=== PATIENT | female | born 1990 | race Caucasian/White ===

== ENCOUNTER 2019-09-08 22:35 | Emergency (ER) | payer SELFPAY ==
[2019-09-08] MEDS ORDERED: Clindamycin HCl 150 MG Cap PO ONE (22:53)
[2019-09-08] MEDS ORDERED: Lidocaine 2% Viscous Solution 15 ML Cup PO ONE (22:56)
[2019-09-08] MEDS ORDERED: Benzocaine 20% Topical Spray UD MUCMEM ONE (22:56)
--- NOTE | 2019-09-08 22:56 | EDM.PDOC ---
ED HPI GENERAL MEDICAL PROBLEM - General Chief Complaint: ENT Problem Stated Complaint: tooth pain Time Seen by Provider: 09/08/19 22:43 Source of Information: Reports: Patient History Limitations: Reports: No Limitations - History of Present Illness INITIAL COMMENTS - FREE TEXT/NARRATIVE: HISTORY OF PRESENT ILLNESS: Patient is a 29 year old female who presents with 1.5 week history of dental pain and facial swelling on and off. She texted the dentist she plans to see today and he told her to go to ER to get antibiotics before he sees her. Denies any fever or chills. No history of DM or immunocompromise. No difficulty swallowing or breathing. No cp or dyspnea. Reports mild left facial swelling and pain to left upper molar. Able to eat solids and liquids. REVIEW OF SYSTEMS: Other than the symptoms associated with the present events, the following is reported with regard to recent health: General: (-) fever. HENT: (-) congestion. Respiratory: (-) cough. Cardiovascular: (-) chest pain. GI: (-) abdominal pain. : (-) urinary complaints. Musculoskeletal: (-) other aches or pains. Endocrine: (-) generalized weakness. Neurological: (-) localized weakness. Skin: (-) rash PAST MEDICAL HISTORY: reviewed as per nursing notes SOCIAL HISTORY: reviewed as per nursing notes, MEDICATIONS: Per nurse's note ALLERGIES: Per nurse's note, reviewed by me PHYSICAL EXAMINATION: GENERALIZED APPEARANCE: well developed, well nourished in mild distress VITAL SIGNS: Per nurse's note, reviewed by me SKIN: Warm, dry; (-) cyanosis; (-) rash. HEAD: (-) scalp swelling, (-) tenderness. EYES: (-) conjunctival pallor, (-) scleral icterus. EOMI ENMT: (-) stridor; mucous membranes moist. left upper molar TTP with mild gingival erythema without gross abscess and slight facial swelling without any gross facial erythema. pain not out of proportion to examination. no crepitus. uvula midline. no phonation changes. no trismus. NECK: (-) tenderness, (-) stiffness, CHEST AND RESPIRATORY: (-) rales, (-) rhonchi, (-) wheezes; breath sounds equal bilaterally. HEART AND CARDIOVASCULAR: (-) irregularity; (-) murmur, (-) gallop. EXTREMITIES: (-) deformity, (-) edema. NEURO AND PSYCH: Alert. Cranial nerves grossly intact; strength symmetric. gait steady EMERGENCY DEPARTMENT COURSE AND TREATMENT: Patient's condition remained stable during Emergency Department evaluation. Patient presents with acute dentalgia. There is no obvious focal dental abscess on exam. There is no trismus and the patient is tolerating PO fluids.. A referral was given to a dental clinic/ dentist and the patient understands need to follow up in 1-2 days. Instructions were given to return for worsening pain, increased facial swelling, SOB, or not tolerating fluids. They were discharged with antibiotics and analgesia. PLAN AND FOLLOW-UP: Patient received written and verbal instructions regarding this condition. Return to ED immediately with any new or worsening symptoms. Follow up to be arranged by patient with pcp and dentist in 1-2 days for further evaluation. Given discharge precautions. Patient expressed verbal understanding. dental Pain Score (Numeric/FACES): 8 - Related Data Allergies Allergy/AdvReac Type Severity Reaction Status Date / Time Penicillins Allergy Hives Verified 09/08/19 22:54 Sulfa (Sulfonamide Allergy Hives Verified 09/08/19 22:54 Antibiotics) tramadol Allergy Hives Verified 09/08/19 22:54 Home Meds: Home Meds clindamycin HCL [Clindamycin HCl] 300 mg PO TID 7 Days #21 capsule 09/08/19 [Rx] Past Medical History - Past Health History Medical/Surgical History: Denies Medical/Surgical History ED ROS ENT - Review of Systems Review Of Systems: See Below (see dictation) ED EXAM, ENT - Physical Exam Exam: See Below (see dictation) Course - Vital Signs Last Recorded V/S: Last Vital Signs Temp 97.3 F 09/08/19 22:47 Pulse 109 H 09/08/19 22:47 Resp 17 09/08/19 22:47 BP 141/90 H 09/08/19 22:47 Pulse Ox 99 09/08/19 22:47 - Orders/Labs/Meds Orders: Active Orders 24 hr Category Date Time Status Benzocaine [Hurricaine One 20%] Med 09/08/19 22:56 Once 2 each MUCMEM ONETIME ONE Lidocaine 2% [Xylocaine 2% Viscous] Med 09/08/19 22:56 Once 15 ml PO ONETIME ONE Medication Orders Lidocaine HCl (Xylocaine 2% Viscous) 15 ml PO ONETIME ONE Stop: 09/08/19 22:57 Meds: Medications Generic Name Dose Route Start Last Admin Trade Name Freq PRN Reason Stop Dose Admin Lidocaine HCl 15 ml 09/08/19 22:56 Xylocaine 2% Viscous PO 09/08/19 22:57 ONETIME ONE Discontinued Medications Generic Name Dose Route Start Last Admin Trade Name Freq PRN Reason Stop Dose Admin Clindamycin HCl 300 mg 09/08/19 22:53 Cleocin PO 09/08/19 22:54 ONETIME ONE Departure - Departure Time of Disposition: 22:55 Disposition: Home, Self-Care 01 Condition: Good Clinical Impression: Pain, dental - Discharge Information *PRESCRIPTION DRUG MONITORING PROGRAM REVIEWED*: Not Applicable *COPY OF PRESCRIPTION DRUG MONITORING REPORT IN PATIENT SARITHA: Not Applicable Prescriptions: clindamycin HCL [Clindamycin HCl] 300 mg PO TID 7 Days #21 capsule Instructions: Dental Abscess, [id number] Referrals: PCP,Kinza [Primary Care Provider] - Jonatan Olea [Ordering Only Provider] - 2 Days Forms: ED Department Discharge Additional Instructions: The following information is given to patients seen in the emergency department who are being discharged to home. This information is to outline your options for follow-up care. We provide all patients seen in our emergency department with a follow-up referral. The need for follow-up, as well as the timing and circumstances, are variable depending upon the specifics of your emergency department visit. If you don't have a primary care physician on staff, we will provide you with a referral. We always advise you to contact your personal physician following an emergency department visit to inform them of the circumstance of the visit and for follow-up with them and/or the need for any referrals to a consulting specialist. The emergency department will also refer you to a specialist when appropriate. This referral assures that you have the opportunity for follow-up care with a specialist. All of these measure are taken in an effort to provide you with optimal care, which includes your follow-up. Under all circumstances we always encourage you to contact your private physician who remains a resource for coordinating your care. When calling for follow-up care, please make the office aware that this follow-up is from your recent emergency room visit. If for any reason you are refused follow-up, please contact the [facility] Emergency Department at and asked to speak to the emergency department charge nurse. Sepsis Event Note - Evaluation Sepsis Screening Result: No Definite Risk - Focused Exam Vital Signs: Vital Signs Temp Pulse Resp BP Pulse Ox 09/08/19 22:47 97.3 F 109 H 17 141/90 H 99 Date Exam was Performed: 09/08/19 Time Exam was Performed: 22:56 - My Orders Last 24 Hours: My Active Orders 09/08/19 22:56 Benzocaine [Hurricaine One 20%] 2 each MUCMEM ONETIME ONE Lidocaine 2% [Xylocaine 2% Viscous] 15 ml PO ONETIME ONE - Assessment/Plan Last 24 Hours: My Active Orders 09/08/19 22:56 Benzocaine [Hurricaine One 20%] 2 each MUCMEM ONETIME ONE Lidocaine 2% [Xylocaine 2% Viscous] 15 ml PO ONETIME ONE
== END 2019-09-08 23:11 | disposition home or self-care (01) ==
LOC: MW.ED 22:35
DX: K08.89 Other specified disorders of teeth and supporting structures (principal)
CPT/HCPCS: 99282; A9270